=== PATIENT | female | born 1985 | race Two or more races ===

== ENCOUNTER 2016-12-05 15:27 | Outpatient (CLI) | payer BC, MEDICAID ==
[~2016-12-05] VITALS: Ht 157.5 cm; Wt 85.0 kg
[2016-12-05 16:25] LABS: ADD UMIC NO; URINE BILIRUBIN (Dip) NEGATIVE (NEGATIVE); URINE BLOOD (Dip) NEGATIVE (NEGATIVE); URINE COLOR LT. YELLOW (YELLOW); URINE GLUCOSE (Dip) NEGATIVE (NEGATIVE); URINE KETONES (Dip) NEGATIVE (NEGATIVE); URINE LEUKOCYTE ESTERASE (Dip) NEGATIVE (NEGATIVE); URINE NITRITE (Dip) NEGATIVE (NEGATIVE); URINE TOTAL PROTEIN (Dip) NEGATIVE (NEGATIVE); URINE UROBILINOGEN (Dip) 0.2 E.U./dL (0.1-1.0)
[2016-12-05] MEDS ORDERED: LACTATED RINGER'S 1,000 ML IV PRN (16:30)
[2016-12-05] MEDS ORDERED: LACTATED RINGER'S 1,000 ML IV ONE (16:30)
[2016-12-05 16:37] VITALS: Ht 157.5 cm; Wt 85.0 kg
[2016-12-05 16:38] VITALS: BP 108/67; PULSE 112; RESP 20
[2016-12-05] MEDS ORDERED: TERBUTALINE 1 MG/ML INJ SC ONE ×2 (18:00→19:30)
[2016-12-05] MEDS ORDERED: BETAMET NA PHOS/AC(6 MG/ML) 5ML INJ IM ONE (18:30)
--- NOTE | 2016-12-05 18:42 | RADRPT ---
PROCEDURE: Limited OB ultrasound CLINICAL INDICATION: Contractions TECHNIQUE: Limited sonographic evaluation of the gravid uterus was performed to assess the cervica l length COMPARISON: Non. FINDINGS: Single live intrauterine with cardiac heart rate of 148 beats per minute is identifi ed. Fetus is in a cephalic presentation. Placenta is anterior Cervix measures 2.9 cm in length. IMPRESSION: Single live intrauterine with a cervical length of 2.9 cm. RPTAT: HMVK .Stephen Nash MD, Date Time Electronically viewed and signed by .Stephen Nash MD, on 12/05/2016 18:41 .K/
--- NOTE | 2016-12-06 00:15 | HP ---
Date/Time of Note Date/Time of Note DATE: 12/05/16 TIME: 23:27 OB - History Hx of Present Free Text/Dictation 31y.o who had x1 cxesarean section c/o uterine contractions at [id number] had hx of delivery at 36w6d u/a neg ivbolus cervical lenth 2.9cm x2 terbutlaine initial her hr 112 after x2 dose terb maternal HR130 FHR 170kept her for observation one dose betametnasone given next dose will be given qu25moh Estimated Due Date: Jan 12, 2017 : 2 Para: 1 Spontaneous : 0 Therapeutic : 0 Care: Good Care Ultrasounds: Normal mid trimester US Obstetrical Complications: None Medical Complications: None Past Family/Social History * Past Medical, Surgical, Family and Obstetric Histories reviewed from chart. Blood Type: Unknown Rubella: unknown RPR/VDRL: Unknown GBS Status: Unknown HBsAG: Unknown OB Admission Exam Vital Signs Vital Signs Vital Signs Date Time Temp Pulse Resp B/P Pulse Ox O2 Delivery O2 Flow Rate FiO2 12/05/16 16:38 98.2 112 20 108/67 Room Air Physical Exam HEENT: WNL Heart: Rhythm Normal Lungs: Clear, Equal Abdomen: WNL Extremities: Normal Reflexes: Normal Cervical Dilatation: None Effacement: 0% Membranes: Intact Amniotic Fluid: Unevaluable Heart Rate: 150's Accelerations: Accelerations Present Decelerations: No Decelerations Varibility: Moderate Contractions on Admission: 6-10 Minutes Apart Intensity: Moderate OB Assessment/Plan Reason for admission: labor Other Assessment: IUP 34w4d Plan: Other Other plan: rth for 2nd dose of betamethasone MELINDA CRAWLEY MD December 05, 2016 23:37
--- NOTE | 2016-12-06 01:10 | TRIAGE ---
OB Triage Datetime Report Generated by CPN: 12/06/2016 01:10 Datetime: 12/06/2016 00:14 Labor Evaluation Frequency: NONE Monitor Mode: External Resting Tone [place]: Relaxed Heart Rate FHR Baseline Rate: 120 Monitor Mode: External US Variability: Moderate 6-25 bpm Accelerations: 15X15 Decelerations: None Category: Category I Datetime: 12/06/2016 00:03 Pain Assessment Pain Scale: 0 Pain Presence: None/Denies Pain Type: N/A Datetime: 12/05/2016 23:25 Labor Evaluation Frequency: NONE Monitor Mode: External Resting Tone [place]: Relaxed Heart Rate FHR Baseline Rate: 135 Monitor Mode: External US Variability: Moderate 6-25 bpm Accelerations: 15X15 Decelerations: None Category: Category I Datetime: 12/05/2016 23:09 Pain Assessment Pain Scale: 0 Pain Presence: None/Denies Pain Type: N/A Datetime: 12/05/2016 23:00 Stage of : OB Triage Datetime: 12/05/2016 22:25 Stage of : OB Triage Labor Evaluation Frequency: NONE Monitor Mode: External Monitor Mode: External US FHR Baseline Changes: Tachycardia Variability: Moderate 6-25 bpm Accelerations: 15X15 Decelerations: None Category: Category II Pain Presence: None/Denies Datetime: 12/05/2016 21:25 Stage of : OB Triage Labor Evaluation Frequency: NONE Monitor Mode: External Heart Rate FHR Baseline Rate: 180 Monitor Mode: External US FHR Baseline Changes: Tachycardia Variability: Moderate 6-25 bpm Accelerations: 15X15 Decelerations: None Category: Category II Pain Presence: None/Denies Datetime: 12/05/2016 20:28 Stage of : OB Triage Datetime: 12/05/2016 20:25 Stage of : OB Triage Labor Evaluation Frequency: NONE Monitor Mode: External Heart Rate FHR Baseline Rate: 165 Monitor Mode: External US Variability: Moderate 6-25 bpm Accelerations: 15X15 Decelerations: None Category: Category I Pain Presence: None/Denies Datetime: 12/05/2016 19:53 Stage of : OB Triage Datetime: 12/05/2016 19:40 Stage of : OB Triage Labor Evaluation Frequency: X2 Monitor Mode: External Duration (sec)2399: 30-40 Quality: Mild Resting Tone [place]: Relaxed Heart Rate FHR Baseline Rate: 155 Monitor Mode: External US Variability: Moderate 6-25 bpm Accelerations: 15X15 Decelerations: None Category: Category I Datetime: 12/05/2016 19:30 Stage of : OB Triage Datetime: 12/05/2016 18:29 Labor Evaluation Frequency: 6-8 Monitor Mode: External Duration (sec)2399: 30-50 Resting Tone [place]: Relaxed Heart Rate FHR Baseline Rate: 135 Monitor Mode: External US Variability: Moderate 6-25 bpm Accelerations: 10X10 Decelerations: None Category: Category I Pain Assessment Pain Scale: 1 Pain Presence: Intermittent Pain Type: Cramping Pain Goal: 3 Pain Relief Measures: Comfort Measures Datetime: 12/05/2016 17:59 Stage of : OB Triage Datetime: 12/05/2016 17:42 Labor Evaluation Frequency: 6-8 Monitor Mode: External Duration (sec)2399: 20-30 Resting Tone [place]: Relaxed Heart Rate FHR Baseline Rate: 150 Monitor Mode: External US Variability: Moderate 6-25 bpm Accelerations: 10X10 Decelerations: None Category: Category I Pain Assessment Pain Scale: 1 Pain Presence: Intermittent Pain Type: Cramping Pain Goal: 3 Pain Relief Measures: Comfort Measures Datetime: 12/05/2016 16:42 EGA: 34.4 Datetime: 12/05/2016 16:33 Labor Evaluation Frequency: 8-10 Monitor Mode: External Pattern: Normal: <= 5 Contractions in 10 Minutes Resting Tone [place]: Relaxed Heart Rate FHR Baseline Rate: 145 Monitor Mode: External US Variability: Moderate 6-25 bpm Accelerations: 15X15 Decelerations: None Category: Category I Pain Assessment Pain Scale: 1 Pain Presence: Intermittent Pain Type: Cramping Pain Goal: 3 Pain Relief Measures: Comfort Measures Datetime: 12/05/2016 15:57 Vaginal Exam Dilatation (cms): 0.0 Effacement (%): 50 Station: -2 Exam By: LR RN Membrane Status: Intact Datetime: 12/05/2016 15:30 Stage of : OB Triage Assessment Type: Triage Maternal Assessment Level of Consciousness: Fully Conscious DTR's/Clonus: DTRs 2+; No Clonus Headache: Denies Blurred Vision: No Respiratory Effort: Unlabored; Regular Rhythm; Equal Expansion Breath Sounds, Left: Clear and Equal Breath Sounds, Right: Clear and Equal Nausea/Vomiting: Denies RUQ Epigastric Pain: Denies Lower Extremities Edema: None Upper Extremities Edema: None Facial Edema: None Temperature Route: Oral Fall Risk Assessment History of Falling: (0) No Secondary Diagnosis: (0) No Ambulatory Aid: (0) Bedrest/Nurse Assist IV Therapy: (0) No Gait: (0) Normal/Bedrest/Immobile Mental Status: (0) Oriented to Own Ability Fall Score: 0 Fall Risk Score Definition: No Risk: No action required Labor Evaluation Frequency: X3 (Annotations: IN `20 MIN) Monitor Mode: External Heart Rate FHR Baseline Rate: 150 Monitor Mode: External US Variability: Moderate 6-25 bpm Accelerations: 15X15 Decelerations: None Category: Category I Pain Assessment Pain Scale: 6 Pain Presence: Intermittent Pain Type: Cramping; Contraction Pain Location: Abdomen Pain Goal: 0 Pain Relief Measures: NAPPER TENDER Use Datetime: 12/05/2016 15:20 Time of Arrival: 12/05/2016 15:20 Arrived By: Wheelchair Arrived From: Home Movement: Present Contractions: Regular Time Contractions Began: 12/05/2016 07:00 Contractions: 5 Rupture of Membranes: Denies Vaginal Discharge: Denies Abdominal Trauma: Not Applicable Patient Complaints: Contractions; Cramping; Pain on Urination Additional Patient Complaints: URINARY FREQUENCY Time Provider Notified: 12/05/2016 16:10 Provider Notified: DR MS CRAWLEY Initial Plan: CAROLYNT EFM TOCO FOR 'S VE
[2016-12-06] MEDS ORDERED: BETAMET NA PHOS/AC(6 MG/ML) 5ML INJ IM ONE (18:30)
[2016-12-06] MEDS ORDERED: PREN1TAB79 PO (19:09)
== END 2016-12-06 00:30 | disposition home or self-care (01) ==
LOC: MERGE 15:27 → OBT 15:27 → L-D 15:30 → OBT 12-06 00:30
PROVIDERS: ATTEND Obstetrics & Gynecology
DX: O60.03 Preterm labor without delivery, third trimester (principal); O09.213 Supervision of pregnancy with history of pre-term labor, third trimester; Z3A.34 34 weeks gestation of pregnancy
CPT/HCPCS: 76817; 81003; J0702; J3105; J7120; 96360; 96372; G0463

== ENCOUNTER 2016-12-06 18:40 | Outpatient (CLI) | payer BC ==
[~2016-12-06] VITALS: Ht 157.5 cm; Wt 77.1 kg
[2016-12-06 19:07] VITALS: Ht 157.5 cm; Wt 77.1 kg
[2016-12-06] MEDS ORDERED: PREN1TAB79 PO (19:09)
[2016-12-06] MEDS ORDERED: BETAMET NA PHOS/AC(6 MG/ML) 5ML INJ IM ONE (19:30)
--- NOTE | 2016-12-06 21:47 | TRIAGE ---
OB Triage Datetime Report Generated by CPN: 12/06/2016 21:47 Datetime: 12/06/2016 21:22 Stage of : OB Triage Monitor Mode: External Quality: Mild Pattern: Normal: <= 5 Contractions in 10 Minutes Resting Tone [place]: Relaxed FHR Baseline Rate: 130 Monitor Mode: External US FHR Baseline Changes: No Baseline Change Variability: Moderate 6-25 bpm Accelerations: 15X15 Decelerations: None Category: Category I Pain Scale: 2 Pain Presence: Intermittent Pain Type: Cramping Pain Location: Abdomen Datetime: 12/06/2016 20:52 Stage of : OB Triage Frequency: 5-8 Monitor Mode: External Duration (sec)2399: 30-50 Quality: Mild Pattern: Normal: <= 5 Contractions in 10 Minutes Resting Tone [place]: Relaxed FHR Baseline Rate: 130 Monitor Mode: External US FHR Baseline Changes: No Baseline Change Variability: Moderate 6-25 bpm Accelerations: 15X15 Decelerations: None Category: Category I Datetime: 12/06/2016 19:30 Stage of : OB Triage Monitor Mode: External Duration (sec)2399: 20-40 Quality: Mild Pattern: Normal: <= 5 Contractions in 10 Minutes Resting Tone [place]: Relaxed Contraction Comments: Pt states feels tightening only FHR Baseline Rate: 130 Monitor Mode: External US FHR Baseline Changes: No Baseline Change Variability: Moderate 6-25 bpm Accelerations: 15X15 Decelerations: None Category: Category I Pain Scale: 2 Pain Presence: Intermittent Datetime: 12/06/2016 19:06 Assessment Type: Triage Level of Consciousness: Fully Conscious DTR's/Clonus: DTRs 2+; No Clonus Headache: Denies Blurred Vision: No Respiratory Effort: Unlabored; Regular Rhythm; Equal Expansion Breath Sounds, Left: Clear and Equal Breath Sounds, Right: Clear and Equal Nausea/Vomiting: Denies RUQ Epigastric Pain: Denies Lower Extremities Edema: None Degree: None Upper Extremities Edema: None Degree: None Facial Edema: None History of Falling: (0) No Secondary Diagnosis: (0) No Ambulatory Aid: (0) Bedrest/Nurse Assist IV Therapy: (0) No Gait: (0) Normal/Bedrest/Immobile Mental Status: (0) Oriented to Own Ability Fall Score: 0 Fall Risk Score Definition: No Risk: No action required Datetime: 12/06/2016 19:00 Time of Arrival: 12/06/2016 19:00 EGA: 34.5 Arrived By: Ambulatory Arrived From: Home Chief Complaint: PT CAME IN FOR A FOLLOW UP BETA # 2 Movement: Present Contractions: Denies/Absent Rupture of Membranes: Denies Vaginal Discharge: Denies Recent Sexual Intercouse: Denies Abdominal Trauma: Not Applicable Additional Patient Complaints: NONE Initial Plan: BETA, NST
--- NOTE | 2016-12-07 00:02 | PN ---
Date/Time of Note Date/Time of Note DATE: 12/06/16 TIME: 23:56 OB Subjective Subjective Subjective 31y.o whd had one c/s at [id number] was here for PTL on 12/05/16 had iv hydration and x1 bmz on 12/05 and x2 terbutaline cervical length 2.9 today much less discomfort OB Objective Objective Objective occ mild u.c EFM nst reactive OB Assessment/Plan Other Assessment: [id number] resolved PTl Other plan: 2nd dose BMZ given MELINDA CRAWLEY MD December 07, 2016 00:01
== END 2016-12-06 21:37 | disposition home or self-care (01) ==
LOC: OBT 18:40 → MERGE 18:40 → L-D 18:41 → OBT 21:37
PROVIDERS: ATTEND Obstetrics & Gynecology
DX: O60.03 Preterm labor without delivery, third trimester (principal); Z3A.34 34 weeks gestation of pregnancy
CPT/HCPCS: 96372; G0463; J0702

== ENCOUNTER 2017-01-03 07:30 | Inpatient (IN) | payer BC ==
[~2017-01-03] VITALS: Ht 157.5 cm; Wt 87.5 kg
[~2017-01-03 07:30] MED LIST: PREN1TAB79 PO
[2017-01-03] MEDS ORDERED: LACTATED RINGER'S 1,000 ML IV ONE (15:11)
[2017-01-03] MEDS ORDERED: ONDANSETRON 4 MG INJ IV ONE (15:30)
[2017-01-03] MEDS ORDERED: CITRIC ACID/SODIUM CITRATE 15 ML CUP PO ONE (15:30)
[2017-01-03] MEDS ORDERED: METHYLERGONOVINE 0.2 MG INJ IM PRN (16:00)
[2017-01-03] MEDS ORDERED: MISOPROSTOL 200 MCG TAB PR PRN (16:00)
[2017-01-03] MEDS ORDERED: OXYTOCIN 30 UNITS/LR 500 ML IV SCH (16:00)
[2017-01-03] MEDS ORDERED: CEFAZOLIN 2 GM/50 ML (PMX) 50 ML IV SCH (16:00)
[2017-01-03] MEDS ORDERED: CARBOPROST 250 MCG INJ IM PRN (16:00)
[2017-01-03] MEDS ORDERED: OXYTOCIN 30 UNITS/LR 500 ML IV PRN (16:00)
[2017-01-03 16:05] VITALS: Ht 157.5 cm; Wt 87.5 kg
[2017-01-03 16:06] VITALS: BP 115/75; PULSE 82; RESP 18
[2017-01-03 16:19] LABS: ADD SCAN DIFF NO
[2017-01-03 16:20] LABS: BASOPHILS % 0.4 % (0.0-2.0); EOSINOPHILS % 0.5 % (0.0-7.0); HEMATOCRIT 32.7 % (37.0-47.0); HEMOGLOBIN 11.1 g/dl (12.0-16.0); LYMPHOCYTES # 2.3 10^3/ul (0.8-2.9); LYMPHOCYTES % 27.2 % (15.0-51.0); MEAN CORPUSCULAR HEMOGLOBIN 28.3 pg (29.0-33.0); MEAN CORPUSCULAR HGB CONC 33.9 g/dl (32.0-37.0); MEAN CORPUSCULAR VOLUME 83.4 fl (82.0-101.0); MEAN PLATELET VOLUME 11.1 fl (7.4-10.4); MONOCYTE # 0.6 10^3/ul (0.3-0.9); MONOCYTES % 7.5 % (0.0-11.0); NEUTROPHIL # 5.4 10^3/ul (1.6-7.5); NEUTROPHILS % 63.1 % (39.0-77.0); PLATELET COUNT 208 10^3/UL (140-415); RED BLOOD COUNT 3.92 10^6/ul (4.20-5.40); RED CELL DISTRIBUTION WIDTH 13.2 % (11.5-14.5); WHITE BLOOD COUNT 8.5 10^3/ul (4.8-10.8)
[2017-01-03] MEDS: LACTATED RINGER'S 1,000 ML IV SCH (16:32)
[2017-01-03 16:36] LABS: INR 1.07; PROTIME 13.9 Sec (12.2-14.2); PT RATIO 1.1
[2017-01-03] MEDS ORDERED: FENTAnyl 50 MCG/ML VIAL ONE (19:04)
[2017-01-03] MEDS ORDERED: morphine SULFATE/PF (10 MG/10 ML) INJ ONE (19:04)
--- NOTE | 2017-01-03 19:14 | HP ---
Date/Time of Note Date/Time of Note DATE: 01/03/17 TIME: 18:59 OB - History Hx of Present Free Text/Dictation 31 y.o at 38w5d was scheduled repeat c/s intact membrane acc to pnr u/s on october 21 28w 1d , suspected poor growth bpp color doppler done S/D ratio wnl admitted for repeat section after proper consent obatained Chief Complaint: for repeat section Estimated Due Date: Jan 12, 2017 : 2 Para: 1 Spontaneous : 0 Therapeutic : 0 Care: Good Care Ultrasounds: Normal mid trimester US Obstetrical Complications: None Past Family/Social History * Past Medical, Surgical, Family and Obstetric Histories reviewed from chart. Blood Type: O+ Rubella: immune RPR/VDRL: Negative GBS Status: Negative HBsAG: Negative OB Admission Exam Vital Signs Vital Signs Vital Signs Date Time Temp Pulse Resp B/P Pulse Ox O2 Delivery O2 Flow Rate FiO2 01/03/17 16:06 98.3 82 18 115/75 Room Air Physical Exam HEENT: WNL Heart: Rhythm Normal Lungs: Clear, Equal Abdomen: WNL Extremities: Normal Reflexes: Normal Cervical Dilatation: other Station: Other Membranes: Intact Amniotic Fluid: Unevaluable Heart Rate: 130's Accelerations: Accelerations Present Decelerations: No Decelerations Varibility: Moderate Contractions on Admission: None Last 72 hours Lab Results CBC & BMP 01/03/17 16:00 OB Assessment/Plan Reason for admission: section Other Assessment: with previous c/section Plan: Section MELINDA CRAWLEY MD Jan 03, 2017 19:10
[2017-01-03] MEDS ORDERED: PHENYLephrine (100 MCG/ML) 5ML SYG ONE (20:06)
[2017-01-03] MEDS ORDERED: METOCLOPRAMIDE 10 MG INJ ONE (20:07)
[2017-01-03] MEDS ORDERED: EPHEDrine SULFATE 50 MG/5 ML SYG ONE (20:20)
[2017-01-03] MEDS ORDERED: NALOXONE (0.4 MG/ML) INJ IV PRN (21:00)
[2017-01-03] MEDS ORDERED: DIPHENHYDRAMINE 50 MG INJ IV PRN (21:00)
[2017-01-03] MEDS ORDERED: HYDROmorphONE 1 MG/ML SYG IV PRN ×2 (21:00)
[2017-01-03] MEDS ORDERED: ONDANSETRON 4 MG INJ IV PRN (21:00)
[2017-01-03] MEDS ORDERED: PROCHLORPERAZINE 10 MG INJ IV PRN (21:00)
[2017-01-03] MEDS: KETOROLAC 30 MG INJ IV PRN (22:49)
--- NOTE | 2017-01-03 23:29 | DELSUM ---
Delivery Summary A-C Datetime Report Generated by CPN: 01/03/2017 23:29 DELIVERY PERSONNEL Music Minister: Nicki, Tanya MATERNAL INFORMATION Delivery Anesthesia: Spinal Medications in Delivery: See Anesthesia Notes Estimated Blood Loss (ml): 600 Placenta Cultured: No Maternal Complications: None RN Comments: SPINAL ANESTHESIA PLACED BY DR. MAHONEY LABOR SUMMARY EDC: 01/12/2017 00:00 No. Babies in Womb: 1 Attempted: No Labor Anesthesia: None LABOR INFORMATION Reason for Induction: Not Applicable Oxytocin: N/A Group B Beta Strep: Negative Antibiotics # of Doses: 1 Antibiotics Time of Last Dose: 01/03/2017 19:15 Steroids Given: None Reason Steroids Not Administered: Not Applicable MEMBRANES Membranes Rupture Method: Artificial Rupture of Membranes: 01/03/2017 20:13 Length of Rupture (hr): 0.00 Amniotic Fluid Color: Clear Amniotic Fluid Amount: Moderate Amniotic Fluid Odor: None STAGES OF LABOR Stage 3 hr: 0 Stage 3 min: 1 CSECTION DELIVERY Primary Indication: Repeat Elective Secondary Indication: N/A CSection Urgency: Elective CSection Incidence: Repeat Labor: No Labor Elective: Elective CSection Incision: Lower Uterine Transverse BABY A INFORMATION Infant Delivery Date/Time: 01/03/2017 20:13 Method of Delivery: Born in Route : No : N/A Forceps: N/A Vacuum Extraction: N/A Shoulder Dystocia : N/A SHOULDER DYSTOCIA BABY A Infant Delivery Date/Time: 01/03/2017 20:13 PRESENTATION/POSITION BABY A Presentation: Cephalic Cephalic Presentation: Vertex Vertex Position: Left Occipital Anterior Breech Presentation: N/A PLACENTA INFORMATION BABY A Placenta Delivery Time : 01/03/2017 20:14 Placenta Method of Delivery: Manual Removal Placenta Status: Delivered SCORES BABY A Heart Rate 1 min: >100 bpm Resp Effort 1 min: Good Cry Reflex Irritability 1 min: Cough/Sneeze/Pulls Away Muscle Tone 1 min: Active Motion Color 1 min: Body [place], Extremit Blue Resuscitation Effort 1 min: Tactile Stimulation SCORE 1 MIN: 9 Heart Rate 5 min: >100 bpm Resp Effort 5 min: Good Cry Reflex Irritability 5 min: Cough/Sneeze/Pulls Away Muscle Tone 5 min: Active Motion Color 5 min: Body [place], Extremit Blue Resuscitation Effort 5 min: Tactile Stimulation SCORE 5 MIN: 9 INFANT INFORMATION BABY A Gestational Age at Delivery: 38.5 Gestational Status: Early Term- 37- 38.6 Weeks Outcome : Liveborn Infant Condition : Stable Infant Sex: Male IDENTIFICATION/MEDS BABY A ID Band Number: [id number] ID Band Location: Right Leg; Left Arm Sensor Applied: Yes Sensor Number: [id number] Sensor Location : Cord Clamp Vitamin K Given : Not Given Erythromycin Given: Not Given WEIGHT/LENGTH BABY A Infant Birthweight (gm): 3220 Infant Weight (lb): 7 Infant Weight (oz): 2 Length (in): 19.00 Infant Length (cm): 48.26 CORD INFORMATION BABY A No. Cord Vessels: 3 Nuchal Cord : Around Neck x1, Tight Cord Blood Taken: Yes Infant Suction: Mouth; Nose ASSESSMENT BABY A Complications: None Physical Findings at Delivery: Within Normal Limits Infant Respirations: Appears Normal Stogy Maker/ALS Called : No Infant Care By: Umm FARLEY RN Transferred To: Remains with Mother
[2017-01-03 23:35] VITALS: BP 114/69; PULSE 74; RESP 18
[2017-01-04] MEDS ORDERED: MISOPROSTOL 200 MCG TAB PR PRN
[2017-01-04] MEDS ORDERED: METHYLERGONOVINE 0.2 MG INJ IM PRN
[2017-01-04] MEDS ORDERED: OXYTOCIN 30 UNITS/LR 500 ML IV PRN
[2017-01-04] MEDS ORDERED: CARBOPROST 250 MCG INJ IM PRN
[2017-01-04] MEDS ORDERED: ONDANSETRON 4 MG INJ IV PRN
[2017-01-04] MEDS ORDERED: ZOLPIDEM 5 MG TAB PO PRN
--- NOTE | 2017-01-04 00:01 | OPR ---
DATE OF OPERATION: 01/03/2017 PREOPERATIVE DIAGNOSIS: 38 weeks 5 days with previous labor and with previous huyen arean section. POSTOPERATIVE DIAGNOSES: 1. 38 weeks 5 days with previous labor and with previous section. 2. Delivered normal male . 3. Severe pelvic adhesions, omental adhesions. OPERATION PERFORMED: Repeat low transverse section and lysis of adhesions. ACQUISITIONS LIBRARIAN: Jose Elias Collins MD SURGEON: Drake Gurrola MD ESTIMATED BLOOD LOSS: Approximately 600 mL PROCEDURE: Under proper induction of spinal anesthesia which was difficult due to the patient has s evere scoliosis. The patient was placed in the frog position. Cordon catheter was introduced into t he bladder under sterile conditions, repositioned to supine. Abdominal wall was prepped and draped in usual aseptic manner. Incision was made along the previous incisional scar, and scar tissue was excised. Incision was carried down through the subcutaneous tissue to the anterior recti fascia, wh ich was incised transversely in length of the incision. Fascial flap was created by blunt and sharp dissection of tendinous attachment, the peritoneal cavity entered. Upon entering the peritoneal ca vity, it was noticed that multiple omental adhesions were covering entire anterior surface of the ut erus and also fundus and this coming from both sides of the parietal peritoneum, which was spread wi th also filmy adhesions noted on the lower segment which was pushed down, and the incision was made above the uterovesical reflection, incision carried down layer by layer until reached the amniotic m embrane, which was ruptured, and a normal male was born with a 1-time nuchal cord which was l oose and flipped over and delivered, and mouth and nose were cleaned, cord was clamped and cut, hand ed to the respiratory care personnel for further care. The uterus was delivered out with some oment al adhesions wrapped around the entire fundal area, which was left without releasing it because the uterine incision needed to be closed first. Uterine incision was closed with #1 chromic ____ catgut on the first layer in interlocking manner and then second layer using 0 chromic catgut with a thin needle and including the visceral peritoneum which was able to cover the first layer of closure. No bleeding noted. Since the omental adhesions were very extensive, some of them were clamped and cut , and the pedicle was ligated with 0 chromic catgut in multiple areas, and some of them were using t he Bovie and as much as we could because there were extensive omental adhesions, and there is a filmy adhesion from the previous surgery which was taken care of, and the irrigation was done, and the uterine incisional site was rechecked for the bleeder, which was intact, and the parietal p eritoneum was not able to be identified due to these multiple adhesions. At this point, we decided to put a barrier between the muscle and the uterus, which used Surgicel, and then muscle closed with 0 chromic catgut, interrupted manner. Fascia closed with #1 Vicryl in continuous manner in 2 segme nts. Subcutaneous tissue irrigated with water and the bleeder controlled properly. This layer was approximated with 2-0 plain in continuous manner. Skin closed with 3-0 Monocryl in subcuticular man ner. Steri-Strip applied. Pressure dressing applied. Estimated blood loss approximately 600 mL. Urine output was more than 200 mL during procedure. Procedure was completed. The patient withstood the procedure, was sent to recovery room in good condition. Dictated By: DRAKE TOLEDO/DANIELLE Conf#: [id number] DID#: [id number]
[2017-01-04 00:05] VITALS: BP 116/68; PULSE 68; RESP 18
[2017-01-04] MEDS: LACTATED RINGER'S 1,000 ML IV SCH ×4 (02:13→23:43)
[2017-01-04] MEDS: LANOLIN 7 GM TUBE TOP PRN ×2 (03:30→21:37)
[2017-01-04 04:10] VITALS: BP 104/56; PULSE 76; RESP 18
--- NOTE | 2017-01-04 07:33 | OPPN ---
Date/Time of Note Date/Time of Note DATE: 01/04/17 TIME: 07:32 Anesthesia Follow up Anesthesia Follow up Last documented vital signs Vital Signs Date Time Temp Pulse Resp B/P Pulse Ox O2 Delivery O2 Flow Rate FiO2 01/04/17 04:53 99 21 01/04/17 04:10 98.1 76 18 104/56 Room Air Respiratory function: WNL Cardiovascular function: WNL Comments POD 1 s/p Repeat c/s. Pt is VSS, A&Ox3, pain controlled, no n/v, FIERRO, sensory intact, no back pain, only c/o incisional pain. baby skin to skin, tolerating po. TANVIR BRIZUELA MD Jan 04, 2017 07:33
[2017-01-04 07:36] LABS: ADD SCAN DIFF NO
[2017-01-04 07:38] LABS: BASOPHILS % 0.1 % (0.0-2.0); EOSINOPHILS % 0.2 % (0.0-7.0); HEMATOCRIT 29.9 % (37.0-47.0); HEMOGLOBIN 9.8 g/dl (12.0-16.0); LYMPHOCYTES # 2.1 10^3/ul (0.8-2.9); LYMPHOCYTES % 21.9 % (15.0-51.0); MEAN CORPUSCULAR HEMOGLOBIN 27.5 pg (29.0-33.0); MEAN CORPUSCULAR HGB CONC 32.8 g/dl (32.0-37.0); MEAN CORPUSCULAR VOLUME 83.8 fl (82.0-101.0); MEAN PLATELET VOLUME 11.2 fl (7.4-10.4); MONOCYTE # 0.5 10^3/ul (0.3-0.9); MONOCYTES % 4.7 % (0.0-11.0); NEUTROPHIL # 7.1 10^3/ul (1.6-7.5); NEUTROPHILS % 72.5 % (39.0-77.0); PLATELET COUNT 175 10^3/UL (140-415); RED BLOOD COUNT 3.57 10^6/ul (4.20-5.40); RED CELL DISTRIBUTION WIDTH 13.2 % (11.5-14.5); WHITE BLOOD COUNT 9.8 10^3/ul (4.8-10.8)
[2017-01-04 08:25] VITALS: BP 98/57; PULSE 82; RESP 18
[2017-01-04] MEDS: SENNA/DOCUSATE NA (8.6MG/50MG) TAB PO SCH ×2 (10:05→21:37)
[2017-01-04] MEDS: KETOROLAC 30 MG INJ IV PRN ×2 (11:31→18:45)
[2017-01-04 11:35] VITALS: BP 98/94; PULSE 75; RESP 19
[2017-01-04 16:32] VITALS: BP 103/55; PULSE 83; RESP 17
--- NOTE | 2017-01-04 16:52 | PN ---
Date/Time of Note Date/Time of Note DATE: 01/04/17 TIME: 16:45 OB Subjective Subjective Subjective no c/o passing flatus OB Objective Objective Objective vss afebrile abdomen soft wound dry lochia min ext no calf tenderness OB Assessment/Plan Other Assessment: s/p RC/S and lysis of adhesion Other plan: see orders MELINDA CRAWLEY MD Jan 04, 2017 16:51
[2017-01-04 20:00] VITALS: BP 118/69; PULSE 83; RESP 19
[2017-01-04] MEDS ORDERED: OXYCODONE/ACETAMINOPHEN (5/325) TAB PO PRN ×2 (21:00)
[2017-01-04] MEDS ORDERED: DIPHENHYDRAMINE 50 MG INJ IV PRN (21:00)
[2017-01-05] MEDS: IBUPROFEN 600 MG TAB PO SCH ×5 (00:03→23:34)
[2017-01-05 03:50] VITALS: BP 110/68; PULSE 75; RESP 19
[2017-01-05 08:15] VITALS: BP 113/68; PULSE 81; RESP 20
[2017-01-05] MEDS: SENNA/DOCUSATE NA (8.6MG/50MG) TAB PO SCH ×2 (10:01→21:26)
[2017-01-05 16:09] VITALS: BP 103/66; PULSE 85; RESP 17
[2017-01-05 19:55] VITALS: BP 119/72; PULSE 76; RESP 18
--- NOTE | 2017-01-05 21:02 | PN ---
Date/Time of Note Date/Time of Note DATE: 01/05/17 TIME: 21:00 OB Subjective Subjective Subjective passing flatus no bm yet voiding well OB Objective Objective Objective vss afebrile abdomen soft wound dry lochia min calf neg for tenderness OB Assessment/Plan Other Assessment: satisfactory post repeat c/s Other plan: d/s home in am MELINDA CRAWLEY MD Jan 05, 2017 21:02
[2017-01-06 04:10] VITALS: BP 108/58; PULSE 82; RESP 18
[2017-01-06] MEDS: IBUPROFEN 600 MG TAB PO SCH ×2 (05:53→12:50)
[2017-01-06 08:24] VITALS: BP 104/72; PULSE 80; RESP 20
[2017-01-06] MEDS ORDERED: DIPHTH/TET/ACEL PERTUSS (ADULT) 0.5 ML VIAL IM* ONE (09:00)
[2017-01-06] MEDS: SENNA/DOCUSATE NA (8.6MG/50MG) TAB PO SCH (09:23)
[2017-01-06 12:09] VITALS: BP 118/69; PULSE 69; RESP 20
--- NOTE | 2017-01-06 15:22 | DS ---
Date/Time of Note Date/Time of Note DATE: 01/06/17 TIME: 15:17 Obstetrical Discharge Record Final Diagnosis Final Diagnosis: Term delivered Other Final Diagnosis omental adhesion Section Section: Repeat Complications Augmentation: No Induction: No Condition on Discharge Physical Assessment Last Vitals: vss afebrile Voiding: Yes Bowel Movement: No Breast: Soft, non-tender Fundus: Firm Abdomen and Incision: soft wound dry Calf Tenderness: No Patient Condition: Stable MELINDA CRAWLEY MD Jan 06, 2017 15:22
--- NOTE | 2017-01-06 15:24 | PD.PPDC ---
MINE INSPECTOR Discharge Instruction Diagnosis Final Diagnosis: s/p repeat section Condition Patient Condition: Stable Diet Diet: Resume Regular Diet Activity/Restrictions Activity: May Shower Restrictions: No Lifting No Sexual Activity Nothing in the Vagina No Goff No Tampons, douche Wound/Drain Care Instructions Wound/Drain Care Instructions: Wash with soap and water Keep clean and dry Follow-up Follow-up with Physician: 2, Week/Weeks Return to clinic for IRRIGATION EQUIPMENT REMOVER Instructions: Fever greater than 101 Chills Worsening abdominal pain Excessive Vaginal Bleeding More than 2 pads per hour Unable to tolerate diet OB Instructions: Breast Tenderness Depression Blurried Vision Headache MELINDA CRAWLEY MD Jan 06, 2017 15:24
== END 2017-01-06 16:45 | disposition home or self-care (01) | DRG 766 ==
LOC: L-D 15:00 → PP1 23:34
PROVIDERS: ADMIT Obstetrics & Gynecology; ATTEND Obstetrics & Gynecology
PROC: 3E00X4Z Introduction of Serum, Toxoid and Vaccine into Skin and Mucous Membranes, External Approach (ICD-10-PCS; 2017-01-03)
PROC: 10D00Z1 Extraction of Products of Conception, Low, Open Approach (ICD-10-PCS; principal; 2017-01-03 17:00)
DX: O34.211 Maternal care for low transverse scar from previous cesarean delivery (principal); K66.0 Peritoneal adhesions (postprocedural) (postinfection); O99.62 Diseases of the digestive system complicating childbirth; Z23 Encounter for immunization; Z3A.38 38 weeks gestation of pregnancy; Z37.0 Single live birth
CPT/HCPCS: 85025; 85610; 85730; 86592; 86850; 86900; 86901; 90715; 94760; 99464; J0690; J1885; J2274; J2370; J2405; J2590; J2765; J3010; J7120

== ENCOUNTER 2018-03-06 02:06 | Emergency (ER) | END 2018-03-06 04:10 | disposition home or self-care (01) ==

== ENCOUNTER 2018-03-23 16:29 | Emergency (ER) | END 2018-03-23 19:29 | disposition home or self-care (01) ==

== ENCOUNTER 2018-03-26 06:53 | Emergency (ER) | END 2018-03-26 08:50 | disposition home or self-care (01) ==

== ENCOUNTER 2018-07-30 14:01 | Emergency (ER) | payer BC ==
[~2018-07-30] VITALS: Ht 160 cm; Wt 82.0 kg
[~2018-07-30 14:01] MED LIST changes: +RANI150T35 PO; +SUCR1TAB56 PO
[2018-07-30 14:08] VITALS: BP 130/78; PULSE 87; RESP 20; Ht 160 cm; Wt 82.0 kg
--- NOTE | 2018-07-30 15:24 | ERD ---
ER Documentation Chief Complaint Chief Complaint cough x 10 days causing abd pain; 32wks preg;needs med clearance before L&D HPI 33-year-old female who i s a patient who is currently 23 weeks presents to the ED complaining of a dry cough that started 10 days ago. Patient is up-to-date with her vaccinations. Patient reports that she only has abdominal pain when she coughs. Denies any vaginal bleeding, abdominal pain, dysuria, urgency, frequency. States that she is taking Robitussin-DM and also using a humidifier. Denies any fever, chills, chest pain, shortness of breath, nausea, vomiting, diarrhea. She reports that she has an appointment with Dr. Gurrola on August 02, 2017. ROS All systems reviewed and are negative except as per history of present illness. Medications Home Meds Active Scripts Ranitidine Hcl* (Zantac*) 150 Mg Tablet, 150 MG PO BID PRN for EPIGASTRIC PAIN, #30 TAB Prov:CRISTY MUHAMMAD 03/06/18 Sucralfate* (Carafate*) 1 Gm Tab, 1 GM PO QID, #20 TAB Prov:CRISTY MUHAMMAD 03/06/18 Reported Medications Vit W-Ca,Fe,FA(<1 mg) ( Vitamins) 1 Each Tablet, 1 EACH PO, TAB 12/06/16 Allergies Allergies: Coded Allergies: No Known Allergies (Unverified Allergy, Unknown, 03/23/18) PMhx/Soc History of Surgery: Yes ( x2) Anesthesia Reaction: No Hx Neurological Disorder: No Hx Respiratory Disorders: No Hx Cardiac Disorders: No Hx Psychiatric Problems: No Hx Miscellaneous Medical Probl: No (GASTRITIS, G=3 PARA=2) Hx Alcohol Use: No Hx Substance Use: No Hx Tobacco Use: No Smoking Status: Never smoker FmHx Family History: No diabetes, No coronary disease Physical Exam Vitals Vital Signs Date Temp Pulse Resp B/P (MAP) Pulse Ox O2 O2 Flow FiO2 Time Delivery Rate 07/30/18 97.8 87 20 130/78 98 14:08 (95) Physical Exam Const: [id number]-jio-[id number], well-nourished. In no acute distress. Head: Atraumatic, normocephalic Eyes: Normal Conjunctiva without injection. No purulent discharge. PERRL. EOMI ENT: Normal external ear. Ear canal without erythema. Tympanic membrane pearly florentino without effusion or bulging. Nasal canal clear with normal turbinates. Moist oropharynx without tonsillar exudates. Non-erythematous pharynx. Uvula midline. No drooling. No trismus. Neck: Full range of motion. No meningismus. No cervical lymphadenopathy. Resp: Clear to auscultation bilaterally. No wheezing, rhonchi, rales, or crackles. No accessory muscle use. No retractions. Cardio: Regular rate and rhythm. No murmurs, rubs or gallops. Abd: Soft, non tender, non distended. Normal bowel sounds. No palpable masses. No rebound tenderness. No guarding. Skin: No petechiae or rashes Back: No midline tenderness. No CVA tenderness. Ext: No cyanosis, or edema. Neur: Awake and alert. Psych: Normal Mood and Affect Procedures/MDM 33-year-old female patient who is a presents to the ED stating that she has had a cough for the last 10 days. Patient is afebrile and nontoxic- appearing. Patient likely has symptoms due to viral etiology. Patient's lungs are clear to auscultation as well as patient is afebrile. Low suspicion for acute myocardial infarction, pneumothorax, pericarditis, myocarditis, endocarditis, pneumonia, cardiac tamponade, pulmonary embolism, pleural effusion, AAA, aortic dissection, Boerhaave's syndrome, cardiac dysrhythmias,meningitis, intracranial bleed, seizure, stroke, TIA or other emergent conditions. Diagnosis: Cough Discharge medications: Zyrtec Follow up with primary care physician in 1-2 days. Instructed patient to return to the ED sooner for any worsening symptoms. Patient's questions were answered. Patient is hemodynamically stable. Patient understood and agreed with discharge plan. Patient discharged stable. Disclaimer: Inadvertent spelling and grammatical errors are likely due to EHR/dictation software use and do not reflect on the overall quality of patient care. Also, please note that the electronic time recorded on this note does not necessarily reflect the actual time of the patient encounter. Departure Diagnosis: Primary Impression: Cough Condition: Stable Patient Instructions: Uri, Viral, No Abx (Adult) Referrals: COMMUNITY CLINICS YOU HAVE RECEIVED A MEDICAL SCREENING EXAM AND THE RESULTS INDICATE THAT YOU DO NOT HAVE A CONDITION THAT REQUIRES URGENT TREATMENT IN THE EMERGENCY DEPARTMENT. FURTHER EVALUATION AND TREATMENT OF YOUR CONDITION CAN WAIT UNTIL YOU ARE SEEN IN YOUR DOCTORS OFFICE WITHIN THE NEXT 1-2 DAYS. IT IS YOUR RESPONSIBILITY TO MAKE AN APPOINTMENT FOR FOLOW-UP CARE. IF YOU HAVE A PRIMARY DOCTOR --you should call your primary doctor and schedule an appointment IF YOU DO NOT HAVE A PRIMARY DOCTOR YOU CAN CALL OUR PHYSICIAN REFERRAL HOTLINE AT IF YOU CAN NOT AFFORD TO SEE A PHYSICIAN YOU CAN CHOSE FROM THE FOLLOWING [facility] CLINICS [facility] [address] [facility] [address] [facility]. [facility] [address] [facility]. [facility] [address] [facility]. [facility] [address] [facility]. [facility] [address] [facility]. [facility] YOU HAVE RECEIVED A MEDICAL SCREENING EXAM AND THE RESULTS INDICATE THAT YOU DO NOT HAVE A CONDITION THAT REQUIRES URGENT TREATMENT IN THE EMERGENCY DEPARTMENT. FURTHER EVALUATION AND TREATMENT OF YOUR CONDITION CAN WAIT UNTIL YOU ARE SEEN IN YOUR DOCTORS OFFICE WITHIN THE NEXT 1-2 DAYS. IT IS YOUR RESPONSIBILITY TO MAKE AN APPOINTMENT FOR FOLOW-UP CARE. IF YOU HAVE A PRIMARY DOCTOR --you should call your primary doctor and schedule and appointment IF YOU DO NOT HAVE A PRIMARY DOCTOR YOU CAN CALL OUR PHYSICIAN REFERRAL HOTLINE AT . IF YOU CAN NOT AFFORD TO SEE A PHYSICIAN YOU CAN CHOSE FROM THE FOLLOWING [facility] INSTITUTIONS: [facility] [address] [place] [address] [facility] [address] [place] [address] [facility] [address] [place] [address] [facility] INSOLE COVER[place] [address] [facility] [address] [place] [address] OFFICE FAX [facility] [address] [place] [address] [address] DUARTE RAND [address] [place] [address] [address] GABRIEL [facility] [address], [address], [facility] [address] [address] [facility] [address] [place] [address] [facility] [address] [place] [address] [address] [facility] [id number] [address], [facility] [address] [facility]. [address] [address] [address] [place], [place] [address] [facility]. [address], [facility] [address] [address], [facility] [address] [place], [place] [id number] [facility] Hours: 8:00 am - 5:00 pm Additional Instructions: Call your primary care doctor TOMORROW for an appointment during the next 2-3 days.See the doctor sooner or return here if your condition worsens before your appointment time. Keep your appointment to see Dr. Gurrola on , 08/02/17. LILIANA HI PA-C Jul 30, 2018 15:24
== END 2018-07-30 15:14 | disposition home or self-care (01) ==
LOC: FTE 14:01
DX: O99.89 Other specified diseases and conditions complicating pregnancy, childbirth and the puerperium (principal); R05 Cough; Z3A.32 32 weeks gestation of pregnancy
CPT/HCPCS: 99282